=== PATIENT | female | born 2000 | race Caucasian/White ===

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

== ENCOUNTER → 2021-02-13 17:06 | Outpatient (CLI) | payer OTHER, MEDICAID, SELFPAY ==
--- NOTE | 2021-02-13 | DI.MRI.S_ITS ---
PROCEDURE: MR TMJ WO CON INDICATIONS: JAW JOINT TECHNIQUE: Axial T1 spin echo, coronal and sagittal PD fast spin echo through the temporomandibular joints, in both the closed- and open-mouth positions. COMPARISON: None. FINDINGS: Image quality: Excellent. Right: Joint is normally aligned on closed and open-mouth positioning. Articular disk is anteriorly displaced in the closed-mouth position. There is reduction of the articular disc displacement in the open-mouth position. Small right temporomandibular joint effusion.. No bony erosions or osteophytes. Left: Joint is normally aligned on closed and open-mouth positioning. Articular disk demonstrates normal location and morphology. Trace left temporomandibular joint effusion. No bony erosions or osteophytes. IMPRESSION: 1. Anterior displacement of the right articular disc with reduction in the open-mouth position. 2. Small right temporomandibular joint and trace left temporomandibular joint effusions. Dictated by: Elissa Dumont MD, PhD on 02/14/2021 at 8:28 Approved by: Elissa Dumont MD, PhD on 02/14/2021 at 11:40
== END ==
PROVIDERS: Referring Provider Dentist Oral and Maxillofacial Surgery; Visit Provider Dentist Oral and Maxillofacial Surgery
DX: R68.84 Jaw pain (principal); M26.631 Articular disc disorder of right temporomandibular joint
CPT/HCPCS: 70336

== ENCOUNTER 2023-09-01 08:41 | Emergency (ER) | payer OTHER, SELFPAY ==
[2023-09-01 08:44] VITALS: BP 133/79; PULSE 107; O2SAT 100
[2023-09-01 08:47] VITALS: BP 133/79; PULSE 96; RESP 18; TEMP 36.6; O2SAT 100; BMI 42.9
--- NOTE | 2023-09-01 08:59 | ED.DENTAL ---
HPI - Dental/Oral General Chief complaint: Dental/Oral Stated complaint: popping sound in jaw has tmd Time Seen by Provider: 09/01/23 08:42 Source: patient Mode of arrival: Ambulatory History of Present Illness HPI Narrative: 23-year-old female with history of TMJ presents for pain in her left jaw as well as a loud clicking noise heard earlier today. She was driving in the car when she opened her jaw and there was a loud popping noise with increase in pain in the left side. Pain has now improved but she was concerned so she decided to present for evaluation. Denies dental pain. States she has mild left ear pain after the loud clicking noise. Related Data Home Medications Medication Instructions Recorded Confirmed ondansetron 4 mg disintegrating 4 mg sublingual ##0 10/29/15 tablet (Zofran ODT) sertraline 25 mg tablet (Zoloft) Unknown ##0 10/29/15 Previous Rx's Medication Instructions Recorded clindamycin HCl 300 mg capsule 300 mg PO TID #30 caps 02/24/18 Allergies Allergy/AdvReac Type Severity Reaction Status Date / Time Penicillins [PENICILLINS] Allergy Unknown Hives Verified 02/22/18 19:27 iodine Allergy Rash Verified 09/01/23 08:50 Patient History Social History Smoking Status: Never smoker Smoking Status: Never smoker alcohol intake frequency: 0-2 drinks per day Substance Use Type: does not use Exam Initial Vital Signs Initial Vital Signs: Vital Signs Pulse Rate 107 H 09/01/23 08:44 Blood Pressure 133/79 09/01/23 08:44 Pulse Oximetry 100 09/01/23 08:44 Const: Awake, alert, no acute distress, nontoxic appearing HEENT: Clicking when jaw open, trismus, no pooling of secretions, dentition normal without obvious infection or abscess, TM normal bilaterally Skin: Warm, Dry, intact, no rashes Neuro: AO x3, CN II-XII grossly intact, moves all extremities Course Vital Signs Vital signs: Vital Signs - 8 hr 09/01/23 08:44 09/01/23 08:44 09/01/23 08:47 Temperature 97.8 F Pulse Rate 107 H 96 H Respiratory Rate 18 Blood Pressure 133/79 133/79 Pulse Oximetry 100 100 Oxygen Delivery Method Room Air MDM - Dental/Oral MDM Narrative Medical decision making narrative: Clicking noise with patient who has known TMJ. Counseled to follow up with dentist for possible mouth guard. Advised against nail biting or chewing pens. Tylenol and ibuprofen PRN for pain Discharge Plan Departure Patient Disposition: Home Clinical Impression: TMJ (temporomandibular joint syndrome) Instructions: DI for Temporomandibular Disorder Activity Restrictions/Additional Instructions: For TMJ pain I recommend Tylenol and ibuprofen 1st line. You may talk to your primary care doctor about physical therapy if conservative measures do not improve your symptoms. A dentist can sometimes fit you with a bite block to help prevent symptoms from getting worse at night. Make sure that if you engaged in behaviors such as nail biting or pen chewing you stop these as these can make TMJ worse Prescriptions: No Action sertraline [Zoloft] 25 MG tablet Unknown Qty: 0 ondansetron [Zofran ODT] 4 MG tablet,disintegrating 4 mg Sublingual Qty: 0 clindamycin HCl 300 mg capsule 300 mg PO TID Qty: 30 0RF Referrals: Ousmane Villalobos DMD [Physician] - Stand Alone Forms: Patient Portal/API
== END 2023-09-01 09:28 | disposition home or self-care (01) ==
PROVIDERS: Emergency Provider Emergency Medicine
DX: M26.602 Left temporomandibular joint disorder, unspecified (principal)
CPT/HCPCS: 99281; 99282

== ENCOUNTER 2024-01-19 20:36 | Emergency (ER) | payer OTHER, SELFPAY ==
[2024-01-19] VITALS (9 sets, daily range): BP systolic 122–139; BP diastolic 58–89; PULSE 89–125; RESP 18–20; TEMP 36.9–37.1; O2SAT 98–100; BMI 42.9
--- NOTE | 2024-01-19 20:50 | DI.RAD.S_ITS ---
PROCEDURE: XR CHEST 2V INDICATIONS: Cough shortness of breath TECHNIQUE: 2 views of the chest were acquired. COMPARISON: None. FINDINGS: Surgical changes and devices: None. Lungs and pleura: Low lung volumes. No dense airspace disease or pleural effusions. Mediastinum: Normal heart size. Mild eventration of the right hemidiaphragm Bones and chest wall: Unremarkable IMPRESSION: No acute radiographic abnormality. Low lung volumes. Dictated by: Trav Givens M.D. on 01/19/2024 at 21:06 Approved by: Trav Givens M.D. on 01/19/2024 at 21:07
[2024-01-19] MEDS: ALBUTEROL 2.5 MG/3 ML NEB (ADULT) INH (21:07)
--- NOTE | 2024-01-19 21:45 | ED.URI ---
HPI - URI/Sore Throat General Chief Complaint: Upper Respiratory Symptoms Stated Complaint: SOB, cough t-7 Time Seen by Provider: 01/19/24 20:46 Source: patient Mode of arrival: Ambulatory History of Present Illness HPI Narrative: 23-year-old female has 3 days dry cough, increased shortness of breath, some sore throat symptoms. 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 No known exposure to persons with documented COVID or influenza. Denies chest pain. Denies abdominal pain. Denies nausea or vomiting, no diarrhea. No dysuria or frequency of urination. Related Data Home Medications Medication Instructions Recorded Confirmed ondansetron 4 mg disintegrating 4 mg sublingual ##0 10/29/15 tablet (Zofran ODT) sertraline 25 mg tablet (Zoloft) Unknown ##0 10/29/15 Previous Rx's Medication Instructions Recorded clindamycin HCl 300 mg capsule 300 mg PO TID #30 caps 02/24/18 Allergies Allergy/AdvReac Type Severity Reaction Status Date / Time Penicillins [PENICILLINS] Allergy Unknown Hives Verified 02/22/18 19:27 iodine Allergy Rash Verified 09/01/23 08:50 Review of Systems Review of Systems Narrative: See HPI Patient History Social History Smoking Status: Current every day smoker Smoking Status: Current every day smoker alcohol intake frequency: 0-2 drinks per day Substance Use Type: does not use Exam Narrative Exam Narrative: GENERAL: Well-developed patient, in mild distress. HEAD: Atraumatic. Normocephalic. EYES: Pupils equal round and reactive. Extraocular motions intact. No scleral icterus. No injection or drainage. ENT: Nose without bleeding, purulent drainage. Throat without erythema, tonsillar hypertrophy or exudate. Airway patent. NECK: Trachea midline. Non tender CARDIOVASCULAR: Fast rate and regular rhythm without murmurs, gallops, or rubs. RESPIRATORY: Clear to auscultation. Breath sounds equal bilaterally. No wheezes, rales, or rhonchi. GASTROINTESTINAL: Abdomen soft, non-tender, nondistended. EXTREMITIES: No edema or joint tenderness. BACK: Nontender without deformity or crepitance. No flank tenderness. NEURO: AOx3. Motor functions grossly nonfocal SKIN: No rash or erythema of visible areas Initial Vital Signs Initial Vital Signs: Vital Signs Temperature 98.5 F 01/19/24 20:46 Pulse Rate 125 H 01/19/24 20:46 Respiratory Rate 20 01/19/24 20:46 Blood Pressure 139/89 01/19/24 20:46 Pulse Oximetry 99 01/19/24 20:46 Oxygen Delivery Method Room Air 01/19/24 20:46 Course Orders Ordered: ED Orders 01/19/24 20:50 XR chest 2V Stat 01/19/24 20:52 Respiratory Panel (Film Array) Stat 01/19/24 22:15 Urinalysis and Microscopic Stat 01/19/24 22:16 CBC Auto Diff [Complete Blood Count AUTO DIFF] Stat CMP [Comprehensive Metabolic Panel] Stat Lactate (Lactic Acid) Stat Discontinued Medications Albuterol (Albuterol 2.5 Mg/3 Ml Neb (Adult)) 2.5 mg INH NOW ONE Stop: 01/19/24 20:51 Last Admin: 01/19/24 21:07 Dose: 2.5 mg Documented By: NICOLE Albuterol (Albuterol Hfa Prepack) 1 box MISC DIRECTED ONE Stop: 01/19/24 22:30 Last Admin: 01/19/24 22:54 Dose: 1 box Documented By: AB Sodium Chloride (Normal Saline 0.9%) 1,000 mls @ 500 mls/hr IV BOLUS ONE Stop: 01/19/24 23:55 Last Admin: 01/19/24 22:07 Dose: 500 mls/hr Documented By: SB Vital Signs Vital signs: Vital Signs - 8 hr 01/19/24 22:22 01/19/24 22:25 01/19/24 22:30 Temperature Pulse Rate 96 H 95 H 92 H Respiratory Rate 18 Blood Pressure 125/73 Pulse Oximetry 99 98 98 Oxygen Delivery Method Room Air 01/19/24 23:00 01/19/24 23:07 01/19/24 23:07 Temperature Pulse Rate 97 H 95 H Respiratory Rate Blood Pressure 127/60 Pulse Oximetry 100 100 Oxygen Delivery Method 01/19/24 23:08 01/19/24 23:08 01/19/24 23:33 Temperature 98.7 F Pulse Rate 89 Respiratory Rate Blood Pressure 122/58 L Pulse Oximetry 100 Oxygen Delivery Method MDM - URI/Sore Throat Lab Data Attestation: I reviewed the patient's lab results. Lab results narrative: White blood cell count 67196, hemoglobin 13.7, platelets adequate. Basic metabolic panel unremarkable. Urinalysis negative. Respiratory panel positive for rhinovirus. 01/19/24 22:16 01/19/24 22:16 Labs: Lab Results 01/19/24 01/19/24 01/19/24 Range/Units 20:52 22:15 22:16 WBC 12.0 H (4.5-11.0) X10^3/uL RBC 4.98 (4.0-5.2) X10^6/uL Hgb 13.7 (12.0-16.0) g/dL Hct 41.4 (36-46) % MCV 83.1 (80-100) fL MCH 27.6 (26-34) PG MCHC 33.2 (30-36) % RDW 14.6 (11.6-14.8) % Plt Count 247 (150-400) X10^3/uL Neut % (Auto) 60.5 (50-75) % Lymph % (Auto) 24.7 L (25-40) % [place] % (Auto) 10.0 (3-14) % Eos % (Auto) 4.2 H (2-4) % Baso % (Auto) 0.6 (0-2) % Neut # (Auto) 7300 H (4537-1303) /uL Lymph # (Auto) 3000 (5012-0604) /uL [place]e # (Auto) 1200 H (0-900) /uL Eos # (Auto) 500 H (0-450) /uL Baso # (Auto) 100 (0-100) /uL Sodium 138 (137-145) mmol/L Potassium 3.5 (3.4-5.1) mmol/L Chloride 105 (98-107) mmol/L Carbon Dioxide 26 (22-32) mmol/L BUN 5 L (7-17) mg/dL Creatinine 0.65 (0.52-1.04) mg/dL Estimated GFR > 60 (>60) mL/min BUN/Creatinine Ratio 7.7 (6-22) Glucose 112 H (70-100) mg/dL Lactate 1.4 (0.7-2.1) mmol/L Calcium 9.0 (8.4-10.2) mg/dL Total Bilirubin 0.3 (0.2-1.3) mg/dL AST 31 (14-36) IU/L ALT 35 H (<35) IU/L Alkaline Phosphatase 103 (38-126) U/L Total Protein 7.3 (6.3-8.2) g/dL Albumin 4.0 (3.5-5.0) g/dL Globulin 3.3 (1.7-4.1) g/dL Albumin/Globulin Ratio 1.2 (1.0-2.8) Urine Color Yellow Urine Appearance Clear Urine pH 6.0 (4.5-8.0) Ur Specific Petroleum 1.020 (1.000-1.035) Urine Protein Negative (Negative) Urine Glucose (UA) Negative (Negative) g/dL Urine Ketones Negative (NEGATIVE) Urine Occult Blood Negative (Negative) Urine Nitrate Negative (Negative) Urine Bilirubin Negative (NEGATIVE) Urine Urobilinogen 0.2 (0.2) E.U./dL Ur Leukocyte Esterase Negative (NEGATIVE) Urine RBC None seen (0-5/HPF) Urine WBC None seen (0-5/HPF) Ur Squamous Epith Cells 0-1 /hpf (0-5/HPF) Urine Bacteria None seen (None) Ur Culture Indicated? Cult not indicated Vol Urine Centrifuged 10ml (spun) Chlamy pneumoniae PCR Not detected (Not Detect) Adenovirus (PCR) Not detected (Not Detect) B. pertussis DNA (PCR) Not detected (Not Detect) B.parapertussis DNA PCR Not detected (Not Detecte) Coronavirus OC43 (PCR) Not detected (Not Detect) Coronavirus HKU1 (PCR) Not detected (Not Detect) Coronavirus 229E (PCR) Not detected (Not Detect) SARS-CoV-2 (PCR) Not detected (Not Detecte) Coronavirus NL63 (PCR) Not detected (Not Detect) Human Metapneumovir PCR Not detected (Not Detect) Influenza Type A (PCR) Not detected (Not Detect) Influenza Type B (PCR) Not detected (Not Detect) M. pneumoniae (PCR) Not detected (Not Detect) Parainfluenza 1 (PCR) Not detected (Not Detect) Parainfluenza 2 (PCR) Not detected (Not Detect) Parainfluenza 3 (PCR) Not detected (Not Detect) Parainfluenza 4 (PCR) Not detected (Not Detect) RSV (PCR) Not detected (Not Detect) Entero/Rhino (PCR) Detected H (Not Detect) Point of Care Testing Test Results Negative Imaging Data Chest x-ray: Radiologist's Impression: [address] [address] XRay Report Signed Patient: Lucy Bardales MR#: [id number] : 2000 Acct:[id number] Age/Sex: 23 / F Date of Service: 01/19/24 Loc: ED Accession Number: [id number] Procedure: XR chest 2V Ordering Provider: Ousmane Abarca MD PROCEDURE: XR CHEST 2V INDICATIONS: Cough shortness of breath TECHNIQUE: 2 views of the chest were acquired. COMPARISON: None. FINDINGS: Surgical changes and devices: None. Lungs and pleura: Low lung volumes. No dense airspace disease or pleural effusions. Mediastinum: Normal heart size. Mild eventration of the right hemidiaphragm Bones and chest wall: Unremarkable IMPRESSION: No acute radiographic abnormality. Low lung volumes. Dictated by: Trav Givens M.D. on 01/19/2024 at 21:06 Approved by: Trav Givens M.D. on 01/19/2024 at 21:07 [facility] Narrative Medical decision making narrative: 23-year-old female with 3 days cough, increasing shortness of breath, some sore throat. Sinus tachycardia on the monitor noted. Labs sent. Oropharyngeal exam unremarkable. Respiratory panel pending. Chest x-ray pending. Urine test negative. Urinalysis negative. Respiratory panel positive for rhino virus, otherwise negative. Test results including diagnosis rhino virus relayed to patient, self-limited, symptomatic treatment. Vitals improved, heart rate normalized. Albuterol with spacer for discharge. Recheck with PCP if not improving in the next 48 hours. Return precautions discussed. Discharge Plan Departure Patient Disposition: Home Clinical Impression: Acute upper respiratory infection, Rhinovirus infection Activity Restrictions/Additional Instructions: 3 days cough, fast heart rate noted on triage, labs sent, IV fluids given, chest x-ray negative. Breathing treatment given. Respiratory panel was positive for rhinovirus and otherwise negative for all other respiratory pathogens tested. Symptoms and vital signs improved. Albuterol inhaler for discharge to use with spacer, 2 puffs 4 times daily for the next few days, and then as needed. Drink plenty of fluids. Take Tylenol and or Motrin as needed for fevers or chills or pain. Recheck symptoms with your regular doctor if not improved in a couple of days. Return to this/nearest emergency department for any change worsening symptoms or any concerns prior Prescriptions: No Action sertraline [Zoloft] 25 MG tablet Unknown Qty: 0 ondansetron [Zofran ODT] 4 MG tablet,disintegrating 4 mg Sublingual Qty: 0 clindamycin HCl 300 mg capsule 300 mg PO TID Qty: 30 0RF Stand Alone Forms: Patient Portal/API/Survey
[2024-01-19 22:06] LABS: Adenovirus Not Detected (Not Detect); B. parapertussis Not Detected (Not Detecte); Bordetella pertussis Not Detected (Not Detect); Chlamydophila pneumoniae Not Detected (Not Detect); Coronavirus 229E Not Detected (Not Detect); Coronavirus HKU1 Not Detected (Not Detect); Coronavirus NL 63 Not Detected (Not Detect); Coronavirus OC43 Not Detected (Not Detect); Human Metapneumovirus Not Detected (Not Detect); Human Rhinovirus/Enterovirus Detected (Not Detect); Influenza A Not Detected (Not Detect); Influenza B Not Detected (Not Detect); Mycoplasma pneumoniae Not Detected (Not Detect); Parainfluenza Virus 1 Not Detected (Not Detect); Parainfluenza Virus 2 Not Detected (Not Detect); Parainfluenza Virus 3 Not Detected (Not Detect); Parainfluenza Virus 4 Not Detected (Not Detect); Respiratory Syncytial Virus Not Detected (Not Detect); SARS- CoV-2 Not Detected (Not Detecte)
[2024-01-19] MEDS: SODIUM CHLORIDE 0.9% 1,000 ML 500 ML IV (22:07)
[2024-01-19 22:22] LABS: Add Manual Diff / Slide Review NO; Basophils Absolute Auto 100 /uL (0-100); Basophils Percent Auto 0.6 % (0-2); Eosinophils Absolute Auto 500 /uL (0-450); Eosinophils Percent Auto 4.2 % (2-4); Hematocrit 41.4 % (36-46); Hemoglobin 13.7 g/dL (12.0-16.0); Lymphocytes Absolute Auto 3000 /uL (1100-4500); Lymphocytes Percent Auto 24.7 % (25-40); Mean Corpuscular HGB Conc 33.2 % (30-36); Mean Corpuscular Hemoglobin 27.6 PG (26-34); Mean Corpuscular Volume 83.1 fL (80-100); Monocytes Absolute Auto 1200 /uL (0-900); Neutrophils Absolute Auto 7300 /uL (1500-7000); Neutrophils Percent Auto 60.5 % (50-75); Platelet Count 247 X10^3/uL (150-400); Red Blood Cell Count 4.98 X10^6/uL (4.0-5.2); Red Cell Distribution Width 14.6 % (11.6-14.8)
[2024-01-19 22:30] LABS: Appearance Urine UA CLEAR; Bilirubin Urine UA NEGATIVE (NEGATIVE); Color Urine UA YELLOW; Glucose Urine UA NEGATIVE (Negative); Ketones Urine UA NEGATIVE (NEGATIVE); Leukocyte Esterase Urine UA NEGATIVE (NEGATIVE); Nitrite Urine UA NEGATIVE (Negative); Occult Blood Urine UA NEGATIVE (Negative); Protein Urine UA NEGATIVE (Negative); Urobilinogen Urine UA 0.2 E.U./dL (0.2)
[2024-01-19 22:37] LABS: Bacteria Urine None Seen; Culture Indicated Urine Cult Not Indicated; RBC Urine None Seen (0-5/HPF); Squamous Epithelial Cell Urine 0-1 /HPF (0-5/HPF); Urine Volume 10mL (spun); WBC Urine None Seen (0-5/HPF)
[2024-01-19 22:42] LABS: Lactate (Lactic Acid) 1.4 mmol/L (0.7-2.1)
[2024-01-19 22:43] LABS: Alanine Aminotransferase 35 IU/L (<35); Albumin Globulin Ratio 1.2 (1.0-2.8); Alkaline Phosphatase 103 U/L (38-126); Aspartate Aminotransferase 31 IU/L (14-36); BUN Creatinine Ratio 7.7 (6-22); Bilirubin Total 0.3 mg/dL (0.2-1.3); Blood Urea Nitrogen 5 mg/dL (7-17); Carbon Dioxide 26 mmol/L (22-32); Chloride 105 mmol/L (98-107); Estimated Glomerular Filt Rate > 60 mL/min (>60); Globulin 3.3 g/dL (1.7-4.1); Glucose 112 mg/dL (70-100); HEMOLYSIS < 15 (0-50); Potassium 3.5 mmol/L (3.4-5.1); Sodium 138 mmol/L (137-145); Total Protein 7.3 g/dL (6.3-8.2)
[2024-01-19] MEDS: ALBUTEROL HFA PREPACK 1 BOX MISC (22:54)
== END 2024-01-19 23:34 | disposition home or self-care (01) ==
PROVIDERS: Emergency Provider Emergency Medicine
DX: J06.9 Acute upper respiratory infection, unspecified (principal); B34.8 Other viral infections of unspecified site; R06.02 Shortness of breath; R00.0 Tachycardia, unspecified; J02.9 Acute pharyngitis, unspecified; Z11.52 Encounter for screening for COVID-19
CPT/HCPCS: 36415; 71046; 80053; 81001; 81025; 83605; 85025; 87633; 94640; 96360; 99284; J7613